=== PATIENT | female | born 1980 | race Caucasian/White ===

== ENCOUNTER 2018-03-09 11:30 | Emergency (ER) | payer SELFPAY ==
[2018-03-09] MEDS ORDERED: LIDOCAINE UROJECT 10 ML APPL MM ONE (12:44)
--- NOTE | 2018-03-09 12:47 | Emergency Department Record ---
History of Present Illness - General Chief complaint: Female Urogenital Problem Stated complaint: VAGINAL PAIN Time Seen by Provider: 03/09/18 12:39 Source: Patient Mode of Arrival: Ambulatory Limitations: No limitations - History of Present Illness Initial comments: 37 yo female presents with irritation and pain to the external genitalia that started on Thursday. She states it is sore to touch, red, and sensitive. No history of herpes or STD. No fever. No other current symptoms. MD Complaint: Dysuria Onset/Timin -: Days(s) Location: [place] Severity scale (1-10): 10 Quality: Burning Consistency: Constant Improves with: None Worsens with: None LMP Date: 03/09/18 Gestational Age (wks) based on LMP: 0 Associated Symptoms: Dysuria - Related Data Home Medications Medication Instructions Recorded Confirmed Last Taken Insulin Glargine,Hum.rec.anlog 21 unit SQ BID 03/09/18 03/09/18 03/09/18 [Lantus Solostar] Insulin Lispro [Humalog] 15 unit SQ ASDIR 03/09/18 03/09/18 03/09/18 Previous Rx's Medication Instructions Recorded Acyclovir 400 mg PO TID #30 tablet 03/09/18 Hydrocodone/Acetaminophen [Coila 1 tab PO Q8H PRN #12 tab 03/09/18 7.5mg/325mg] Allergies Allergy/AdvReac Type Severity Reaction Status Date / Time No Known Drug Allergies Allergy Verified 03/09/18 12:21 Travel Screening - Travel/Exposure Within Last 30 Days Have you traveled within the last 30 days?: No - Travel/Exposure Within Last Year Have you traveled outside the [place] in the last year?: No - Additonal Travel Details Have you been exposed to anyone with a communicable illness?: No - Travel Symptoms Symptom Screening: None Review of Systems Constitutional: Denies: Chills, Fever, Weakness Eyes: Denies: Eye discharge ENT: Denies: Congestion, Throat pain Respiratory: Denies: Cough Cardiovascular: Denies: Chest pain, Palpitations, Syncope Endocrine: Denies: Fatigue Gastrointestinal: Denies: Abdominal pain, Diarrhea, Nausea, Vomiting Genitourinary: Reports: Dyspareunia, Dysuria. Denies: Abnormal menses, Discharge, Frequency, Hematuria, Incontinence Musculoskeletal: Denies: Arthralgia, Back pain, Neck pain Neurological: Denies: Headache, Numbness, Vertigo, Weakness Psychiatric: Denies: Anxiety Hematological/Lymphatic: Denies: Blood Clots, Easy bleeding, Easy bruising, Swollen glands Past Medical History - SOCIAL HISTORY Smoking Status: Current every day smoker Alcohol Use: Occasional Drug Use: None - RESPIRATORY Hx Respiratory Disorders: No - CARDIOVASCULAR Hx Cardio Disorders: No - NEURO Hx Neuro Disorders: No - GI Hx GI Disorders: No - Hx Genitourinary Disorders: No - ENDOCRINE Hx Endocrine Disorders: Yes Hx Diabetes: Yes Hx Thyroid Disease: No - MUSCULOSKELETAL Hx Musculoskeletal Disorders: No - PSYCH Hx Psych Problems: No - HEMATOLOGY/ONCOLOGY Hx Hematology/Oncology Disorders: No Family Medical History Any Significant Family History?: No Physical Exam - General General Appearance: Alert, Oriented x3, Cooperative, No acute distress Limitations: No limitations - Head Head exam: Atraumatic, Normal inspection - Eye Eye exam: Normal appearance. negative: Conjunctival injection - ENT ENT exam: Normal exam Ear exam: Normal external inspection Nasal Exam: Normal inspection Mouth exam: Normal external inspection - Neck Neck exam: Normal inspection - Cardiovascular Cardiovascular Exam: Tachycardia - GI/Abdominal GI/Abdominal exam: Soft. negative: Tenderness - exam: Abnormal external exam (erythema with numerous ulcerative lesions on the vaginal external area), Vaginal bleeding. negative: Adnexal mass (L), Adnexal mass (R), Adnexal tenderness (L), Adnexal tenderness (R), Cervical discharge, cervical motion tenderness, Vaginal discharge - Extremities Extremities exam: Normal inspection - Back Back exam: Reports: Normal inspection - Neurological Neurological exam: Alert, Oriented X3 - Psychiatric Psychiatric exam: Normal affect, Normal mood - Skin Skin exam: Dry, Intact, Normal color, Warm Course Vital Signs 03/09/18 12:12 Temperature 99.1 F Pulse Rate 125 H Respiratory 20 Rate Blood Pressure 144/108 Pulse Ox 97 - Reevaluation(s) Reevaluation #1: 03/09/18 13:02 The rash on the external vagina is ulcerative in nature suspicious for herpes Wet prep and swabs were sent She will be treated for herpes pending cultures. 03/09/18 13:54 The HCG is negative UA no infection Wet prep is negative She will be sent home on Acyclovir and Coila She is to call her PCP for follow up Culture pending for the pelvic examination. Disposition Disposition: Discharge Clinical Impression: Vaginal pain Disposition: Home, Self-Care Condition: (1) Good Instructions: Genital Herpes Simplex (ED) Additional Instructions: Call for a new family doctor Be seen in the next 3-4 days if worse, sooner if any new concerns No sexual activity until cultures return Prescriptions: Acyclovir 400 mg PO TID #30 tablet Hydrocodone/Acetaminophen [Coila 7.5mg/325mg] 1 tab PO Q8H PRN #12 tab PRN Reason: Pain - General Forms: Patient Portal Access Time of Disposition: 13:55 Quality - Quality Measures Quality Measures: N/A - Blood Pressure Screening Does Patient Have Any of the Following: No Blood Pressure Classification: Hypertensive Reading Systolic Measurement: 132 Diastolic Measurement: 91 Screening for High Blood Pressure: < Pre-Hypertensive BP, F/U Documented > [ [id number]] Pre-Hypertensive Follow-up Interventions: Referral to alternative/primary care provider.
[2018-03-09] MEDS ORDERED: HYDROCODONE/APAP 7.5/325MG TABLET PO ONE (13:00)
[2018-03-09 13:13] LABS: URINE APPEARANCE CLOUDY; URINE BILIRUBIN NEGATIVE (NEGATIVE); URINE BLOOD LARGE (NEGATIVE); URINE COLOR RED; URINE KETONE TRACE (NEGATIVE); URINE LEUKOCYTE ESTERASE TRACE (NEGATIVE); URINE NITRITE NEGATIVE (NEGATIVE); URINE PROTEIN NEGATIVE (NEGATIVE); URINE UROBILINOGEN 0.2 E.U./dL (0.20 - 1.00)
[2018-03-09 13:15] LABS: HCG,QUALITATIVE URINE NEGATIVE (NEGATIVE)
[2018-03-09 13:16] LABS: URINE GLUCOSE (UA) >=1000 mg/dL (NEGATIVE)
[2018-03-09 13:28] LABS: URINE BACTERIA FEW; URINE EPITHELIAL CELLS 0 - 2 (FEW); URINE WBC 0 - 2 (0-2/hpf)
[2018-03-10 16:07] LABS: GC SPECIMEN TYPE Vaginal
[2018-03-10 18:08] LABS: SPECIMEN TYPE Vaginal
== END 2018-03-09 14:16 | disposition home or self-care (01) ==
LOC: ER 11:30
DX: R10.2 Pelvic and perineal pain (principal); F17.210 Nicotine dependence, cigarettes, uncomplicated
CPT/HCPCS: 99283 ×2; 81001; 81025; Q0111; 87210